=== PATIENT | male | born 1935 | race Caucasian/White ===

== ENCOUNTER 2021-12-11 10:20 | Outpatient (CLI) | payer MEDICARE, OTHER, SELFPAY ==
--- NOTE | ~2021-12-11 | US_ITS ---
EXAMINATION: US aorta [facility] DATE: 12/11/2021 11:18 INDICATION: Repetitive healthcare screening for abdominal aortic aneurysm TECHNIQUE: Grayscale, color Doppler, and pulsed Doppler images of the aorta and common iliac arteries were obtained. COMPARISON: None. FINDINGS: The proximal aorta measures 3.0 cm. The mid aorta measures 2.7 cm. The distal aorta measures 2.1 cm. The right common iliac artery measures 1.3 cm. The left common iliac artery measures 1.4 cm. Small am ount of nonhemodynamically significant atherosclerotic plaque scattered throughout the abdominal aort a. IMPRESSION: 1. Normal caliber abdominal aorta. Reviewed, dictated and finalized at location A.
== END 2021-12-11 10:21 | disposition home or self-care (01) ==
DX: Z13.6 Encounter for screening for cardiovascular disorders (principal)
CPT/HCPCS: 76706

== ENCOUNTER 2024-07-17 13:40 | Emergency (ER) | payer MEDICARE, OTHER, SELFPAY ==
--- NOTE | ~2024-07-17 | XR_ITS ---
[id number] Ordering provider: Radha Mcghee APRN History: . left mid anterior rib pain s/p fall 3 weeks ago . Comparison: None. 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 Possible fracture in the right fourth r ib. LEFT LUNG: No effusions or infiltrates. No pneumothorax. Atelectatic changes in the left lung base. SOFT TISSUES: Normal. IMPRESSION: Multiple rib fractures in the left hemithorax. Reviewed, dictated and finalized at location A. [employer]
--- NOTE | 2024-07-17 13:41 | ED.FALL ---
HPI - Fall General Chief Complaint: Fall Stated Complaint: FALL Time Seen by Provider: 07/17/24 13:41 Source: patient Mode of arrival: ambulatory Limitations: no limitations History of Present Illness HPI Narrative: Patient is an 89-year-old male who presents with left rib pain with cough after fall 3 weeks ago and increased SOB. Patient reports elbow went into ribs on fall and has had pain since. Denies any pain at rest or coughing up blood. Is not on blood thinners. Denies hitting head on fall. States he never had any bruising or open wounds. Related Data Home Medications ?Medication ?Instructions ?Recorded ?Confirmed ?Last Taken ?Type atorvastatin 20 mg tablet mg 07/17/24 Unknown History montelukast 10 mg tablet mg 07/17/24 Unknown History sertraline 50 mg tablet mg 07/17/24 Unknown History valsartan 320 tablet 07/17/24 Unknown History mg-hydrochlorothiazide 25 mg tablet Review of Systems Review of Systems: All systems reviewed & are unremarkable except as noted in HPI and below Constitutional: Constitutional: Denies body ache(s), Denies chills, Denies fatigue, Denies fever(s), Denies headache(s), Denies malaise and Denies weakness Eyes: Eyes: Denies blurry vision, Denies irritation and Denies loss of vision ENT: Denies otalgia, Denies headache(s), Denies nasal discharge, Denies sinus pain and Denies sore throat Cardiovascular: Cardiovascular: Denies chest pain, Denies irregular heart rhythm and Denies dyspnea Respiratory: Respiratory: Denies dyspnea and Reports other (rib pain) Gastrointestinal: Gastrointestinal: Denies abdominal pain, Denies melena, Denies hematochezia, Denies diarrhea, Denies nausea and Denies vomiting Musculoskeletal: Musculoskeletal: Denies back pain, Denies myalgias and Denies arthralgias Integumentary/Breasts: Skin/Breast: Denies pruritus and Denies rash Neurologic: Denies headache(s), Denies loss of vision and Denies weakness Psychiatric: Psychiatric: Reports no additional psychiatric complaints Endocrine: Endocrine: Denies fatigue PMFSH Comments At time of signature, agree with nursing past medical, surgical, social and family history. There is no relevant family history pertinent to the presenting complaint. Exam Const: General: cooperative, healthy appearing, comfortable, no acute distress and well nourished Nutritional Appearance: well nourished Orientation/consciousness: patient oriented x3 Limitations: no limitations HENMT: Head: normal to inspection, normocephalic and atraumatic Ears: hearing grossly normal bilaterally and external ears normal Face/Nose/Sinus: Normal external nose present, normal facial exam and face symmetric Face and sinus: normal facial exam and face symmetric Mouth: Yes lip normal Eyes: General: appearance normal, both eyes and all related structures Alignment and Position: alignment normal and position normal Periorbital: periorbital findings normal Eyelids: eyelids normal Pupils: Equal, round and reactive pupils present EOM: EOMs intact bilaterally Neck: Neck: normal visual inspection, full ROM and supple Chest: Chest palpation & inspection: normal inspection of the chest, normal palpation of entire chest wall and tenderness rib left mid-clavicular line involving the 6th rib, involving the 7th rib and involving the 8th rib Resp: Effort & Inspection: normal respiratory effort, able to speak in complete sentences and no cough Auscultation: clear to auscultation bilaterally, no crackles, no rales, no rhonchi and no wheezes Cardio: Rate: regular rate Rhythm: regular rhythm Heart sounds: S1 normal heart sound present and S2 normal heart sound present GI: Inspection: normal to inspection Skin: General skin exam: normal color and no rashes or lesions noted Neuro: General: patient oriented x3 and moves all extremities Cranial nerves: Yes Equal, round and reactive pupils present Speech: normal speech Gait exam (Neuro): Normal gait present Extrem: General: normal to inspection, full ROM and no edema Psych: Appearance: grossly normal and well kempt Mental Status: mental status grossly normal Speech and movement: Normal speech and movement present Affect: normal affect Attitude: cooperative Thought process: Normal thought process present Course Course Emergency Course: Patient being sent to fractures emergency department as a trauma due to fall and multiple rib fractures in a row. Patient is also having increased work of breathing. Portions of this record may have been created with voice recognition software Level of Care: Express Care Visit Vital Signs Vital signs: Reviewed Transfer Transfered to: [facility] Transportation: Other (private auto) Transfer rationale: fall, rib fx 6-9 left side, SOB Accepting physician: Constanza ABEBE MDM - Fall MDM Narrative Medical decision making narrative: Patient is a 89-year-ol male that appears short of breath at baseline. When asked if he always breathes like this he said no and has had shortness of breath since fall. Vital signs stable with 99% oxygen on room air. X-ray shows left rib fractures 6 through 9. Called [facility] and spoke to physician for guidance. Was told he would be transferred out as a trauma. Called [facility] for transfer. Patient does state his doctors are at [facility]. Patient still ambulatory with no significant difficulty walking. Imaging Data Radiologist's impression: [id number] Ordering provider: Radha Mcghee APRN History: . left mid anterior rib pain s/p fall 3 weeks ago . Comparison: None. 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 Possible fracture in the right fourth rib. LEFT LUNG: No effusions or infiltrates. No pneumothorax. Atelectatic changes in the left lung base. SOFT TISSUES: Normal. IMPRESSION: Multiple rib fractures in the left hemithorax. Discharge Plan Discharge Clinical Impression: Closed rib fracture Qualifiers: Encounter type: initial encounter Rib fracture type: multiple ribs Laterality: left Qualified Code(s): S22.42XA - Multiple fractures of ribs, left side, initial encounter for closed fracture Patient Disposition: Acute Care Hospital Condition: Stable Patient Language: Belarusian Prescriptions: No Action atorvastatin 20 mg tablet montelukast 10 mg tablet valsartan-hydrochlorothiazide 320-25 mg tablet Follow-up/Referrals: UNKNOWN,DOCTOR [Non-Staff] - Time of Disposition: 15:12
[2024-07-17 13:55] VITALS: BP 126/68; PULSE 95; RESP 16; TEMP 36.2; O2SAT 99
== END 2024-07-17 15:10 | disposition short-term general hospital (02) ==
PROVIDERS: Emergency Provider Nurse Practitioner Family
DX: S22.42XA Multiple fractures of ribs, left side, initial encounter for closed fracture (principal); W19.XXXA Unspecified fall, initial encounter; I10 Essential (primary) hypertension; E78.00 Pure hypercholesterolemia, unspecified; Z85.46 Personal history of malignant neoplasm of prostate
CPT/HCPCS: 71101; 99203; G0463